=== PATIENT | male | born 1970 | race Caucasian/White ===

== ENCOUNTER → 2018-10-27 | Outpatient (CLI) | payer SELFPAY ==
--- NOTE | 2018-10-27 14:45 | CT_ITS ---
STUDY: CARDIAC CALCIUM SCORING - CT CHEST REASON FOR EXAM: Male, 47 years old. Hyperlipidemia. Screening. RADIATION DOSAGE (If Supplied By Facility): CTDIvol = ( 12.19 ) mGy, DLP = ( 219.42 ) mGycm TECHNIQUE: Axial non-enhanced images were acquired through the heart for the sole purpose of measuring coronary artery calcium. Individualized dose optimization techniques were used for this CT. COMPARISON: None. FINDINGS: Visualized surrounding anatomy: Normal. Left Main Coronary Artery: 23.8 Left Anterior Descending Artery: 0 Left Circumflex Artery: 0 Right Coronary Artery: 0 Total Calcium Score: 23.8 CT/CCTA Calcium Scoring IMPRESSION: A Calcium Score of 23.8 places the patient in the approximate 65th percentile, based on the LOREN[employer] data calculator. Please go to: [email or web address].[email or web address] , for a description of the calculator. Electronically Signed: Kingsley Barnard, at 16:01 EDT Tel , Service support ,
--- NOTE | 2018-10-27 14:46 | CT_ITS ---
STUDY: CARDIAC CALCIUM SCORING - CT CHEST REASON FOR EXAM: Male, 47 years old. Hyperlipidemia. Screening. RADIATION DOSAGE (If Supplied By Facility): CTDIvol = ( 12.19 ) mGy, DLP = ( 219.42 ) mGycm TECHNIQUE: Axial non-enhanced images were acquired through the heart for the sole purpose of measuring coronary artery calcium. Individualized dose optimization techniques were used for this CT. COMPARISON: None. FINDINGS: Visualized surrounding anatomy: Normal. Left Main Coronary Artery: 23.8 Left Anterior Descending Artery: 0 Left Circumflex Artery: 0 Right Coronary Artery: 0 Total Calcium Score: 23.8 CT/Limited Chest CT w/CCTA IMPRESSION: A Calcium Score of 23.8 places the patient in the approximate 65th percentile, based on the LORENZO data calculator. Please go to: [email or web address] , for a description of the calculator. Electronically Signed: Kingsley Barnard, at 16:01 EDT Tel , Service support ,
[2018-10-27 15:00] VITALS: BP 122/75; PULSE 61; RESP 16; O2SAT 99; BMI 29.1
--- NOTE | 2018-10-28 13:59 | CA.SCORE ---
Calcium Scoring Date of Study:: 10/28/18 Coronary Calcium Scoring: High-resolution Computed Tomographic imaging of the chest was performed on [10/27/2018 ], with particular attention paid to the coronary arteries. Images from the examination were analyzed for the presence and extent of coronary artery calcification , using coronary calcium quantification software. The patient tolerated the procedure well and there were no complications. The results of the coronary calcification analysis are provided below. - Findings Left Main (LM): 23.8 Left Anterior Descending (LAD): 0 Left Circumflex (LCX): 0 Right Coronary Artery (RCA): 0 Total Agatston Score: 23.8 Percentile Rankin - Conclusion Calcium Scoring Interpretation: Calcium Score Interpretation 0 No identifiable atherosclerotic plaque. Very low cardiovascular disease risk. <5% chance of presence coronary artery disease A Negative Examination 1-10 Minimal Plaque burden. Significant coronary artery disease very unlikely. 11-100 Mild plaque burden. Likely mild or minimal coronary atherosclerosis. 101-400 Moderate plaque burden Moderate non-obstructive coronary artery disease highly likely. Over 400 Extensive plaque burden. High likelihood of at least one significant coronary stenosis (>50% diameter) The total calcium score (23.8) is between the 50th and 75th percentile for men between the ages of 45 and 49. (Exact percentile calculated to be 65%; this means 64% of the population has a lower calcium score and 35% of the population is a higher calcium score than this patient.) A full evaluation of cardiac risk should include an assessment of all conventional risk factors, and the scores and percentile rankings reported herein should be evaluated in this context.
== END | disposition home or self-care (01) ==
LOC: CT 14:43
PROVIDERS: Family Provider Internal Medicine; PCP Internal Medicine; Referring Provider Internal Medicine; Visit Provider Internal Medicine
DX: E78.5 Hyperlipidemia, unspecified (principal)
CPT/HCPCS: 75571; 76380

== ENCOUNTER → 2019-03-06 | Outpatient (CLI) | payer BC, SELFPAY ==
[2018-10-27 15:00] VITALS: BMI 29.1
--- NOTE | 2019-03-06 11:00 | VDLE_ITS ---
Reason For Study: Pain/Swelling RIGHT LEFT CFV is compressible, spontaneous, phasic, CFV is compressible, spontaneous, phasic, competent and demonstrates normal competent, and demonstrates normal augmentation. augmentation. Rt FV Prox-Mid is compressible with normal venous flow. Acute deep vein thrombosis is noted in the right distal FV, PopV, T/P Trunk, Gastroc V, PTV, PeroV. Acute superficial vein thrombosis is noted in the right GSV from knee to ankle. GSV not visualized above knee. Thombus filled varicose veins noted throughout the calf. Procedure Exam performed in department. A preliminary report was called and/or faxed to Jayleen @ [employer] office. PT sent back to office. Interpretation Summary Acute deep vein thrombosis is noted in the distal right femoral vein. Acute deep vein thrombosis is noted in the right popliteal vein. Acute deep vein thrombosis is noted in the right tibio-peroneal trunk. Acute deep vein thrombosis is noted in the right posterior tibial vein. Acute deep vein thrombosis is noted in the right peroneal vein. Acute deep vein thrombosis is noted in the right gastrocnemius vein. The remainder of the right lower extremity deep venous system is patent and compressible. Acute superficial thrombophlebitis is noted in the right great saphenous vein from the right knee to the ankle, and throughout varicosities in the right calf. The right great saphenous vein was not visualized above the knee. Ordering Physician: Era Chakraborty Referring Physician: Era Chakraborty Performed By: Meri Rivera RVT
--- NOTE | 2019-03-06 13:34 | CT_ITS ---
STUDY: CTA CHEST REASON FOR EXAM: Male, 48 years old. Chest pain and DVT. RADIATION DOSAGE (If Supplied By Facility): CTDIvol = ( 9.05 ) mGy, DLP = ( 493.75 ) mGycm TECHNIQUE: The examination was performed with the intravenous administration of IV Isovue 300 100mL. Post-processing of the angiographic images was performed, with multiplanar reformation and 3D reconstruction. Individualized dose optimization techniques were used for this CT. COMPARISON: None. FINDINGS: There are multiple nonocclusive intraluminal filling defects in branches of the right and left upper lobe pulmonary arterial branches. A filling defect is seen in the right interlobar pulmonary artery in keeping with bilateral diffuse pulmonary emboli. Normal thoracic aorta and visualized great vessels. There is no demonstrated aortic dissection. Normal heart and pericardium. Normal mediastinum. Normal hilar regions. Normal visualized trachea and bronchi. The lungs are well expanded. Normal pulmonary parenchyma. Normal pleura. Normal chest wall structures. Normal osseous structures. Normal visualized upper abdomen. CT/CTA Chest W/WO Contrast IMPRESSION: Diffuse bilateral pulmonary emboli as described. The results were communicated to the referring physician. Electronically Signed: Phil Sharma, at 15:00 EDT , Service support ,
[2019-03-06 13:48] LABS: Erythrocyte Sedimentation Rate 3 mm/hr (0-20)
[2019-03-06 13:49] LABS: Absolute Lymphocyte Count 1.94 X10^3/uL (0.83-4.51); Absolute Neutrophil Count 5.3 X10^3/uL (2.0-7.7); Basophil# 0.05 X10^3/uL; Basophil% 0.6 % (0-1); Eosinophil# 0.24 X10^3/uL; Hematocrit 44.8 % (40-54); Hemoglobin 15.7 g/dL (13.0-16.5); Lymphocyte # 1.94 X10^3/ul (4.0); Lymphocyte % 24.1 % (19-41); Mean Corpuscular Hgb 32.4 pg (27.0-32.0); Mean Corpuscular Volume 92.6 fL (80-94); Mean Platelet Vol. 9.8 fl (6.2-12.0); Monocyte# 0.49 X10^3/uL; Monocyte% 6.1 % (0-10); NRBC Flagged by Analyzer 0 % (0-5); Neutrophil % 65.8 % (47-70); Partial Thromboplast Time 26.4 Seconds (24.1-36.2); Platelet Count 152 K/mm3 (150-450); Prothrombin Time (Protime)PT. 13.4 SECONDS (11.7-14.9); RBC Distribution Width CV 12.2 % (11.6-14.6); RBC Distribution Width SD 41.4 fl (35.1-43.9); Red Blood Count 4.84 M/mm3 (4.6-6.2); White Blood Count 8.1 K/mm3 (4.4-11.0)
[2019-03-06 14:04] LABS: ALB/GLOB Ratio 1.1 RATIO (0.9-2.4); AST(SGOT) 15 U/L (15-37); Alanine Aminotransfer ALT/SGPT 27 U/L (16-61); Alkaline Phosphatase 77 U/L (45-117); Anion Gap 6 (5-15); BUN 15 mg/dL (7-18); BUN/Creat Ratio 14.6 RATIO (10-20); Calcium,Total 9.3 mg/dL (8.5-10.1); Chloride 104 mmol/L (98-107); Creatinine, Serum 1.03 mg/dL (0.70-1.30); EST Glomerular Filtration Rate 81 mL/min (>60); Est Glom Filt Rate - Afr Amer 98 mL/min (>60); Globulin 3.5 g/dL (2.2-4.2); Glucose 99 mg/dL (74-106); Potassium 4.4 mmol/L (3.5-5.1); Protein, Total 7.5 g/dL (6.4-8.2); Sodium Level 138 mmol/L (136-145)
== END | disposition home or self-care (01) ==
PROVIDERS: Family Provider Internal Medicine; PCP Internal Medicine; Referring Provider Internal Medicine; Visit Provider Internal Medicine
DX: M79.661 Pain in right lower leg (principal); M79.89 Other specified soft tissue disorders; I82.409 Acute embolism and thrombosis of unspecified deep veins of unspecified lower extremity; R07.9 Chest pain, unspecified
CPT/HCPCS: 36415; 71275; 80053; 85025; 85610; 85652; 85730; 86140; 93971; Q9967

== ENCOUNTER 2019-05-01 08:53 | Day surgery (SDC) | payer BC, SELFPAY ==
[2019-04-13 15:52] VITALS: BMI 29.1
--- NOTE | 2019-04-22 11:43 | HP_ITS ---
Intake Vital Signs 04/13/19 Body Mass Index (BMI) 29.1 04/13/19 Height 6 ft 04/13/19 Weight: 225 lb 04/13/19 Body Mass Index (BMI) 30.5 04/13/19 Blood Pressure 113/78 04/13/19 Blood Pressure Location Rt brachial 04/13/19 Blood Pressure Position Sitting 04/13/19 Respiratory Rate 16 04/13/19 Pulse Rate 70 04/13/19 Pulse Source Monitor 04/13/19 Temperature 98.5 F 04/13/19 Temperature Source Oral 04/13/19 Pulse Ox 98 04/13/19 Oxygen Delivery Method room air Intake Visit Reasons: EGD/REFLUX [employer] Technician Required: No Is patient in pain?: No Allergies No Known Allergies Allergy (Verified 04/13/19 15:50) Medications apixaban 5 mg tablet 5 mg PO BID #60 tab 04/13/19 [History Confirmed 04/13/19] citalopram 20 mg tablet 20 mg PO DAILY #90 tab 04/13/19 [History Confirmed 04/13/19] omeprazole 40 mg capsule,delayed release 40 mg PO DAILY #90 cap 04/13/19 [History Confirmed 04/13/19] PFSH Medical History Hx of deep vein thrombophlebitis of lower extremity (Acute) Blood clot in vein (Acute) Hemorrhoids (Acute) Acid reflux (Acute) Blood in stool (Acute) Abdominal pain (Acute) SOB (shortness of breath) (Acute) Pulmonary embolism, bilateral (Acute) Surgical History History of esophagogastroduodenoscopy (EGD) (Acute) Hx of colonoscopy (Acute) hx of leg stent (Acute) Hx of nasal septoplasty (Acute) Family History Father A-fib Rossi esophagus Social History (Updated 04/22/19 @ 11:43 by Carlo Dacosta MD) Smoking Status: Never smoker second hand exposure: No alcohol intake: never substance use type: does not use caffeine: Yes what type of physical activity do you participate in: none frequency: does not exercise HPI HPI HPI: SHANNAN WILKES, is a 48 M who presents to the office today for HPI HPI Surgical H&P: Yes HPI: SHANNAN WILKES, is a 48 M who presents to the office today for Epigastric discomfort. Patient had an upper endoscopy completed on 05/06/2016 he was noted to have a small hiatal hernia and a fundic gland polyp and a negative Colonoscopy.Patient has had a recent DVT and PE and has a family history of GI cancer. ROS General General: No weight change, appetite, fatigue, colon cancer, breast cancer or weakness HEENT HEENT: No difficulty swallowing, eye injury, eye surgery, swollen glands or hoarseness Endo Endocrine: No thyroid disease, diabetes mellitus, thyroid cancer, Hair loss, heat intolerance or cold intolerance Skin Skin: No rash or changing moles Musc Musculoskeletal: No back problems, arthritis, rheumatoid arthritis, gout or joint pain Cardio Cardiovascular: No murmur, pacemaker, heart disease, atrial fibrillation, high blood pressure, heart attack, heart stent, palpitations, shortness of breat with exertion or chest pain Psych Psychiatric: No depression, anxiety or hearing voices Resp Respiratory: Yes shortness of breath, No sleep apnea, Yes cough, No COPD, No asthma, No emphysema, No wheezing Gastro Gastrointestinal: Yes abdominal pain, No nausea or vomiting, No diarrhea, No constipation, Yes blood in stool, Yes acid reflux, Yes hemorrhoids, No ulcers, No gallbladder problem, No black,tarry stools Stuart Hematologic: Yes blood thinners, No blood disorders, No bleeding, No anemia, Yes blood clots Neuro Neurologic: No system reviewed and no additional complaints, except as docu, No as per HPI, No abnormal walking, No abnormal hearing, No abnormal movements, No abnormal speech, No behavioral changes, No burning sensations, No confusion, No seizure-like activity, No unsteadiness, No dizziness, No localized weakness, No frequent falls, No headache(s), No lack of coordination, No loss of vision, No memory loss, No numbness, No other visual disturbances, No radiating pain, No restless legs, No sensory deficit, No fainting, No tingling, No tremor(s), No weakness, No other Exam Const General: no acute distress, well developed, well hydrated Orientation: oriented to person, oriented to place, oriented to time [facility] Head: normocephalic, atraumatic Ears: external ears normal Mouth: moist mucous membranes Eyes Sclera: sclerae normal Pupils: normal by confrontation Neck Neck: no lymphadenopathy noted Neck mass: No Thyroid: thyroid normal, symmetrical Chest Chest palpation & inspection: normal inspection of the chest Resp Effort & Inspection: normal respiratory effort Auscultation: clear to auscultation bilaterally Percussion: percussion normal Cardio Rate: regular rate Rhythm: regular rhythm Heart Sounds: no murmurs GI Palpation: soft, no hepatosplenomegaly, no masses, nontender Rectal Exam: other Other: Rectal exam deferred. Extrem General: normal to inspection, no clubbing, cyanosis or edema Assessment & Plan Problems 1. Gastroesophageal reflux disease, esophagitis presence not specified K21.9 2. Epigastric discomfort R10.13 Plan I have discussed the above with the patient. I have offered the patient esophagogastroduodenoscopy for evaluation. I have explained the risks/benefits of the procedure and described the procedure. I have discussed the risks with the patient, including but not limited to: infection, bleeding, perforation of the GI tract requiring emergency surgery, inability to complete the procedure, injury to any internal organs, complications of anesthesia, etc. - the patient understands and agrees to proceed. I have answered all the patient's questions to the patient's satisfaction and the patient has no further questions. The patient has been given instructions for the colon cleansing preparation. Coding Level of Care Code Off vis,est,level 3 Diagnoses Gastroesophageal reflux disease, esophagitis presence not specified K21.9 ??Esophagitis presence: esophagitis presence not specified Epigastric discomfort R10.13 04/22/19 1143 <Electronically signed by Carlo mcdaniels MD> Date _ Carlo Dacosta MD I have re-examined the patient. There are no clinical changes since date of exam.
[2019-05-01] VITALS (7 sets, daily range): BP systolic 103–130; BP diastolic 59–84; PULSE 62–71; RESP 16–18; TEMP 36.4–36.8; O2SAT 95–99; BMI 31.4
--- NOTE | 2019-05-01 | EGD_PTH ---
PATIENT: SHANNAN WILKES LOC: EN U#:[id number] AGE/SX: 48/M ROOM: RE05/01/[address]: Dr. Carlo Dacosta MD : 1970 BED: DIS: 05/01/2019 SPEC #: [id number] RECD: 05/01/19 13:46 STATUS: SOLITARIO RENeida #: [id number] KIKO: 05/01/19 00:[address]: Carlo Dacosta DEPT: SURGICAL PATHOLOGY RECD BY: Michael Hernandez ENTERED: 05/01/19 13:46 SP TYPE: EGD BIOPSY OT DR: Dr. Era Chakraborty DO Tissues: A - Small intestine biopsy B - Gastric mucous membrane Procedures: Surgery Specimen Level IV HEADER OPERATION: EGD ([facility] [place]) PRE-OP DIAGNOSIS: GERD, epigastric discomfort TISSUE SUBMITTED: A. Biopsy of small bowel, B. Antrum biopsy MICROSCOPIC DIAGNOSIS A. Small bowel, biopsy: Minimal nonspecific chronic inflammation. B. Gastric antrum, biopsy: Minimal chronic inflammation. AM:ana 05/02/19 COMMENT B. The results of immunohistochemistry for Helicobacter pylori will be reported separately ([id number]). MICROSCOPIC DESCRIPTION Slides are reviewed. GROSS DESCRIPTION A. Received is one container labeled with the patient name and designated biopsy of small bowel. The specimen consists of multiple irregular fragments of light cordoba soft tissue that in aggregate measure 0.5 x 0.2 x 0.1 cm. The specimen is totally submitted in one cassette. B. Received is one container labeled with the patient name and designated antrum biopsy. The specimen consists of one irregular fragment of light cordoba soft tissue that measures 0.3 x 0.3 x 0.1 cm. The specimen is totally submitted in one cassette. SHANTEL:ana 05/01/19 TC: 3 CPT: 73693 x2
--- NOTE | 2019-05-01 | IMM_PTH ---
PATIENT: SHANNAN WILKES LOC: EN U#:[id number] AGE/SX: 48/M ROOM: RE05/01/[address]: Dr. Carlo Dacosta MD : 1970 BED: DIS: 05/01/2019 SPEC #: [id number] RECD: 05/01/19 15:25 STATUS: SOLITARIO RENeida #: [id number] KIKO: 05/01/19 00:[address]: Carlo Dacosta DEPT: IMMUNOHISTOCHEMISTRY RECD BY: Darin Malagon ENTERED: 05/01/19 15:25 SP TYPE: IMMUNO OTHR DR: Dr. Era Chakraborty, DO Tissues: Gastric mucous membrane Procedures: H Pylori (initial) PHYSICIAN & INSTITUTION [place] [id number] SPECIMEN INFORMATION: Tissue Source: B. Antrum biopsy Clinical Info: GERD, epigastric pain Specimen Number: [id number] CPT code: 30573 METHODOLOGY: Deparaffinized sections of prefer/formalin-fixed tissue or PAP/DQ stained slides are incubated with monoclonal/polyclonal antibodies/oligonucleotide probes. Localization is made via biotin free immunoperoxidase method. Appropriate controls are performed and reacted as expected. Results on target cell population are indicated in the following table: RESULTS: ANTIBODY / CLONE RESULT Block B H Pylori (polyclonal) negative These tests were developed and their performance characteristics determined by [facility]. They may not have been cleared or approved by the U.S. Food and Drug Administration. The FDA has determined that such clearance or approval is not necessary. INTERPRETATION: B. Gastric antrum, biopsy: Negative for Helicobacter pylori organisms. AM:jose alfredo 05/02/19
[2019-05-01] MEDS: Lactated Ringers 1,000 ML 100 ML IV (09:18)
--- NOTE | 2019-05-01 09:47 | OP.EGD_ITS ---
Patient Name: Josue Quinn Procedure Date: 05/01/2019 9:23 AM Date of : 1970 Age: 48 Procedure: Upper GI endoscopy Indications: Epigastric abdominal pain, Gastro-esophageal reflux disease Providers: Carlo Dacosta MD Referring MD: Era Chakraborty Medicines: See the Anesthesia note for documentation of the administered medications Patient Profile: This is a 48 year old male. Refer to note in patient chart for documentation of history and physical. Complications: No immediate complications. Procedure: Pre-Anesthesia Assessment: - Prior to the procedure, a History and Physical was performed, and patient medications and allergies were reviewed. The patient's tolerance of previous anesthesia was also reviewed. The risks and benefits of the procedure and the sedation options and risks were discussed with the patient. All questions were answered, and informed consent was obtained. Prior Anticoagulants: The patient has taken no previous anticoagulant or antiplatelet agents. ASA Grade Assessment: II - A patient with mild systemic disease. After reviewing the risks and benefits, the patient was deemed in satisfactory condition to undergo the procedure. After obtaining informed consent, the endoscope was passed under direct vision. Throughout the procedure, the patient's blood pressure, pulse, and oxygen saturations were monitored continuously. The gastroscope was introduced through the mouth, and advanced to the second part of duodenum. The upper GI endoscopy was accomplished without difficulty. The patient tolerated the procedure well. Scope In: 9:36:58 AM Scope Out: 9:40:37 AM Total Procedure Duration Time 0 hours 3 minutes 39 seconds Findings: The Z-line was regular and was found 42 cm from the incisors. No biopsies or other specimens were collected for this exam. The examined esophagus was normal. Localized minimal inflammation characterized by erythema was found in the prepyloric region of the stomach. Biopsies were taken with a cold forceps for Helicobacter pylori testing. The examined duodenum was normal. Biopsies were taken with a cold forceps for histology. Impression: - Z-line regular, 42 cm from the incisors. No specimens collected. - Normal esophagus. - Gastritis. Biopsied. - Normal examined duodenum. Biopsied. Recommendation: - Await pathology results. - Repeat upper endoscopy (date not yet determined) for surveillance. - Return to physician merchandising assistant in 1 week. - Continue present medications. Procedure Code(s): --- Professional --- 26060, Esophagogastroduodenoscopy, flexible, transoral; with biopsy, single or multiple Diagnosis Code(s): --- Professional --- K29.70, Gastritis, unspecified, without bleeding R10.13, Epigastric pain K21.9, Gastro-esophageal reflux disease without esophagitis CPT copyright 2017 [employer]. All rights reserved. The codes documented in this report are preliminary and upon clinical office technician review may be revised to meet current compliance requirements. MD Carlo Chaparro MD 05/01/2019 9:46:57 AM This report has been signed electronically. Number of Addenda: 0 Note Initiated On: 05/01/2019 9:23 AM
== END 2019-05-01 10:24 | disposition home or self-care (01) ==
LOC: EN 08:54 → AC 08:55
PROVIDERS: Family Provider Internal Medicine; PCP Internal Medicine; Referring Provider Internal Medicine; Visit Provider Surgery
PROC: 0DJ08ZZ Inspection of Upper Intestinal Tract, Via Natural or Artificial Opening Endoscopic (ICD-10-PCS; CPT 43235; principal; 2019-05-01 09:40)
DX: K29.50 Unspecified chronic gastritis without bleeding (principal); K21.0 Gastro-esophageal reflux disease with esophagitis; Z86.718 Personal history of other venous thrombosis and embolism; Z86.711 Personal history of pulmonary embolism; Z80.0 Family history of malignant neoplasm of digestive organs; Z79.02 Long term (current) use of antithrombotics/antiplatelets
CPT/HCPCS: 43239; 88305; 88342; J7120; J2405

== ENCOUNTER → 2019-05-12 12:49 | Outpatient (CLI) | payer BC, SELFPAY ==
[2018-10-27 15:00] VITALS: BMI 29.1
[2019-05-01 09:14] VITALS: BMI 31.4
--- NOTE | 2019-05-12 12:56 | CT_ITS ---
STUDY: CT ABDOMEN AND PELVIS WITH CONTRAST REASON FOR EXAM: Male, 48 years old. Recent DVT , PE from trauma 01/2019, hx May-Thurner syndrome, left femoral stent 6 years ago. RADIATION DOSAGE (If Supplied By Facility): CTDIvol = ( 16.49 ) mGy, DLP = ( 1043.93 ) mGycm TECHNIQUE: Transaxial 3.75 mm images were obtained from the dome of the diaphragm to the symphysis pubis with oral contrast. 100mL Isovue-300 was administered. Sagittal and coronal images were reconstructed. Individualized dose optimization techniques were used for this CT. COMPARISON: CTA chest 03/06/2019 FINDINGS: The visualized lung bases are unremarkable. The visualized portions of the heart are within normal limits. Stable low attenuation in the right hepatic lobe 0.6 x 0.9 cm image 23 series 2. Normal gallbladder and extrahepatic biliary system. Normal spleen. Normal pancreas. Normal bilateral adrenal glands. Normal right kidney. Normal left kidney. Circumferential aortic left renal vein. The anterior aortic course enters the inferior vena cava L1-2 level and the posterior renal vein enters the inferior vena cava inferior L3 vertebral body level. Normal visualized stomach. Normal small intestine. Normal colon. The appendix is visualized and appears normal. Normal abdominal aorta. Minimal arteriosclerosis of the bilateral common iliac arteries. Normal inferior vena cava. No filling defect within the suprahepatic and intrahepatic inferior vena cava superior to the left anterior aortic renal renal vein confluence. More distal course is insufficiently enhanced for thrombus assessment. Normal retroperitoneum. Left common iliac vein stent. No heterogeneous lumen or overt filling defects detected. No compression STENT. Normal urinary bladder. Borderline size prostate. There is a small umbilical hernia containing fat. Normal osseous structures. CT/Abdomen/Pelvis WITH Contrast IMPRESSION: There is no acute abdomen and pelvic pathology. No inferior vena cava thrombosis proximal to the right renal vein confluence. 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 No compression or deformity of the left common iliac vein stent. Small right hepatic low-attenuation, too small to characterize, stable since previous CT 02/2019. This can be further assessed with needed with dynamic CT liver, ultrasound of liver or MRI depending on clinical concern. Other nonacute findings as outlined above. Electronically Signed: Yulissa Perez MD at 4:38 EST , Service support ,
== END ==
PROVIDERS: Family Provider Internal Medicine; PCP Internal Medicine; Referring Provider Internal Medicine; Visit Provider Internal Medicine
DX: R10.9 Unspecified abdominal pain (principal)
CPT/HCPCS: 74177; Q9967

== ENCOUNTER 2019-05-18 12:37 | Day surgery (SDC) | payer BC, SELFPAY ==
--- NOTE | 2019-04-22 11:43 | HP_ITS ---
Intake Vital Signs 04/13/19 Body Mass Index (BMI) 29.1 04/13/19 Height 6 ft 04/13/19 Weight: 225 lb 04/13/19 Body Mass Index (BMI) 30.5 04/13/19 Blood Pressure 113/78 04/13/19 Blood Pressure Location Rt brachial 04/13/19 Blood Pressure Position Sitting 04/13/19 Respiratory Rate 16 04/13/19 Pulse Rate 70 04/13/19 Pulse Source Monitor 04/13/19 Temperature 98.5 F 04/13/19 Temperature Source Oral 04/13/19 Pulse Ox 98 04/13/19 Oxygen Delivery Method room air Intake Visit Reasons: EGD/REFLUX [employer] Technician Required: No Is patient in pain?: No Allergies No Known Allergies Allergy (Verified 04/13/19 15:50) Medications apixaban 5 mg tablet 5 mg PO BID #60 tab 04/13/19 [History Confirmed 04/13/19] citalopram 20 mg tablet 20 mg PO DAILY #90 tab 04/13/19 [History Confirmed 04/13/19] omeprazole 40 mg capsule,delayed release 40 mg PO DAILY #90 cap 04/13/19 [History Confirmed 04/13/19] PFSH Medical History Hx of deep vein thrombophlebitis of lower extremity (Acute) Blood clot in vein (Acute) Hemorrhoids (Acute) Acid reflux (Acute) Blood in stool (Acute) Abdominal pain (Acute) SOB (shortness of breath) (Acute) Pulmonary embolism, bilateral (Acute) Surgical History History of esophagogastroduodenoscopy (EGD) (Acute) Hx of colonoscopy (Acute) hx of leg stent (Acute) Hx of nasal septoplasty (Acute) Family History Father A-fib Rossi esophagus Social History (Updated 04/22/19 @ 11:43 by Carlo Dacosta MD) Smoking Status: Never smoker second hand exposure: No alcohol intake: never substance use type: does not use caffeine: Yes what type of physical activity do you participate in: none frequency: does not exercise HPI HPI HPI: SHANNAN WILKES, is a 48 M who presents to the office today for HPI HPI Surgical H&P: Yes HPI: SHANNAN WILKES, is a 48 M who presents to the office today for Epigastric discomfort. Patient had an upper endoscopy completed on 05/06/2016 he was noted to have a small hiatal hernia and a fundic gland polyp and a negative Colonoscopy.Patient has had a recent DVT and PE and has a family history of GI cancer. ROS General General: No weight change, appetite, fatigue, colon cancer, breast cancer or weakness HEENT HEENT: No difficulty swallowing, eye injury, eye surgery, swollen glands or hoarseness Endo Endocrine: No thyroid disease, diabetes mellitus, thyroid cancer, Hair loss, heat intolerance or cold intolerance Skin Skin: No rash or changing moles Musc Musculoskeletal: No back problems, arthritis, rheumatoid arthritis, gout or joint pain Cardio Cardiovascular: No murmur, pacemaker, heart disease, atrial fibrillation, high blood pressure, heart attack, heart stent, palpitations, shortness of breat with exertion or chest pain Psych Psychiatric: No depression, anxiety or hearing voices Resp Respiratory: Yes shortness of breath, No sleep apnea, Yes cough, No COPD, No asthma, No emphysema, No wheezing Gastro Gastrointestinal: Yes abdominal pain, No nausea or vomiting, No diarrhea, No constipation, Yes blood in stool, Yes acid reflux, Yes hemorrhoids, No ulcers, No gallbladder problem, No black,tarry stools Stuart Hematologic: Yes blood thinners, No blood disorders, No bleeding, No anemia, Yes blood clots Neuro Neurologic: No system reviewed and no additional complaints, except as docu, No as per HPI, No abnormal walking, No abnormal hearing, No abnormal movements, No abnormal speech, No behavioral changes, No burning sensations, No confusion, No seizure-like activity, No unsteadiness, No dizziness, No localized weakness, No frequent falls, No headache(s), No lack of coordination, No loss of vision, No memory loss, No numbness, No other visual disturbances, No radiating pain, No restless legs, No sensory deficit, No fainting, No tingling, No tremor(s), No weakness, No other Exam Const General: no acute distress, well developed, well hydrated Orientation: oriented to person, oriented to place, oriented to time [facility] Head: normocephalic, atraumatic Ears: external ears normal Mouth: moist mucous membranes Eyes Sclera: sclerae normal Pupils: normal by confrontation Neck Neck: no lymphadenopathy noted Neck mass: No Thyroid: thyroid normal, symmetrical Chest Chest palpation & inspection: normal inspection of the chest Resp Effort & Inspection: normal respiratory effort Auscultation: clear to auscultation bilaterally Percussion: percussion normal Cardio Rate: regular rate Rhythm: regular rhythm Heart Sounds: no murmurs GI Palpation: soft, no hepatosplenomegaly, no masses, nontender Rectal Exam: other Other: Rectal exam deferred. Extrem General: normal to inspection, no clubbing, cyanosis or edema Assessment & Plan Problems 1. Gastroesophageal reflux disease, esophagitis presence not specified K21.9 2. Epigastric discomfort R10.13 Plan I have discussed the above with the patient. I have offered the patient esophagogastroduodenoscopy for evaluation. I have explained the risks/benefits of the procedure and described the procedure. I have discussed the risks with the patient, including but not limited to: infection, bleeding, perforation of the GI tract requiring emergency surgery, inability to complete the procedure, injury to any internal organs, complications of anesthesia, etc. - the patient understands and agrees to proceed. I have answered all the patient's questions to the patient's satisfaction and the patient has no further questions. The patient has been given instructions for the colon cleansing preparation. Coding Level of Care Code Off vis,est,level 3 Diagnoses Gastroesophageal reflux disease, esophagitis presence not specified K21.9 ??Esophagitis presence: esophagitis presence not specified Epigastric discomfort R10.13 04/22/19 1143 <Electronically signed by Carlo mcdaniels MD> Date _ Carlo Dacosta MD
[2019-05-15 10:29] VITALS: BMI 31.4
[2019-05-18 13:14] VITALS: BP 136/83; PULSE 70; RESP 16; TEMP 36.4; O2SAT 98
== END 2019-05-18 13:44 | disposition home or self-care (01) ==
LOC: EN 12:38
PROVIDERS: Surgery; Family Provider Internal Medicine; PCP Internal Medicine; Referring Provider Surgery; Visit Provider Surgery
PROC: F00ZJWZ Instrumental Swallowing and Oral Function Assessment using Swallowing Equipment (ICD-10-PCS; CPT 43235; principal; 2019-05-18 13:25)
DX: K21.9 Gastro-esophageal reflux disease without esophagitis (principal); Z86.711 Personal history of pulmonary embolism; Z79.899 Other long term (current) drug therapy; R10.13 Epigastric pain
CPT/HCPCS: 91010; 91013

== ENCOUNTER → 2019-05-23 12:51 | Outpatient (CLI) | payer BC, SELFPAY ==
[2019-05-15 10:29] VITALS: BMI 31.4
--- NOTE | 2019-05-23 13:45 | MRI_ITS ---
STUDY: MRI ABDOMEN WITH AND WITHOUT CONTRAST REASON FOR EXAM: Male, 48 years old. Low attenuation RIGHT hepatic lobe TECHNIQUE: Standardized fat and water weighted pulse sequences were obtained in all 3 orthogonal planes post contrast administration. IV Yes YES was administered for the contrast portion of the examination. COMPARISON: CT 05/12/2019 FINDINGS: The visualized lung bases are unremarkable. The visualized portions of the heart are within normal limits. Subcentimeter hyperintensity of the posterior segment right lobe of the liver demonstrates no contrast enhancement consistent with a small hepatic cyst. Normal gallbladder and extrahepatic biliary system. Normal spleen. Normal pancreas. Normal bilateral adrenal glands. Normal right kidney. Normal left kidney. Normal visualized stomach. Normal small intestine. Normal colon. There is non-visualization of the appendix. Normal abdominal aorta. Normal inferior vena cava. Normal retroperitoneum. Normal abdominal wall. Normal osseous structures. MRI/MRI Abd WITH and W/O Contrast IMPRESSION: MRI confirms a small subcentimeter cyst in the posterior segment the right lobe of the liver. Electronically Signed: Fazal Johnson MD at 16:40 EST Tel , Service support ,
== END ==
PROVIDERS: Family Provider Internal Medicine; PCP Internal Medicine; Referring Provider Internal Medicine; Visit Provider Internal Medicine
DX: R93.5 Abnormal findings on diagnostic imaging of other abdominal regions, including retroperitoneum (principal)
CPT/HCPCS: 74183; A9575

== ENCOUNTER 2019-07-10 06:33 | Day surgery (SDC) | payer BC, SELFPAY ==
--- NOTE | 2019-06-27 02:42 | HP_ITS ---
Intake Vital Signs 06/27/19 Height 6 ft 06/27/19 Weight: 222 lb 06/27/19 BP 121/68 H 06/27/19 Blood Pressure Location Rt brachial 06/27/19 Position Sitting 06/27/19 Respiration 16 06/27/19 Pulse 88 06/27/19 Pulse Source Monitor 06/27/19 Temp 97.5 F L 06/27/19 Temp Source Oral 06/27/19 Pulse Oximetry (%) 97 06/27/19 Oxygen Delivery Method room air 06/27/19 BMI 31.4 Intake Visit Reasons: Update H&P PH Probe on 07/10 DP Hand Bootmaker Required: No Is patient in pain?: No Allergies No Known Allergies Allergy (Verified 06/27/19 09:51) Medications apixaban 5 mg tablet 5 mg PO BID #60 tab 04/13/19 [History Confirmed 06/27/19] citalopram 20 mg tablet 20 mg PO DAILY #90 tab 04/13/19 [History Confirmed 06/27/19] omeprazole 40 mg capsule,delayed release 40 mg PO DAILY #90 cap 04/13/19 [History Confirmed 06/27/19] PFSH Medical History Hx of deep vein thrombophlebitis of lower extremity (Acute) Blood clot in vein (Acute) Hemorrhoids (Acute) Acid reflux (Acute) Blood in stool (Acute) Abdominal pain (Acute) SOB (shortness of breath) (Acute) Pulmonary embolism, bilateral (Acute) Surgical History History of esophagogastroduodenoscopy (EGD) (Acute) Hx of colonoscopy (Acute) hx of leg stent (Acute) Hx of nasal septoplasty (Acute) History of esophagogastroduodenoscopy (EGD) (Acute ~04/2019) Family History Father A-fib Rossi esophagus Social History (Updated 06/27/19 @ 14:51 by Genesis Herrera PA-C) second hand exposure: No alcohol intake: never substance use type: does not use caffeine: Yes what type of physical activity do you participate in: none frequency: does not exercise HPI HPI HPI: SHANNANHAKEEM WILKES, is a 48 M who presents to the office today for HPI HPI Surgical H&P: Yes HPI: SHANNAN WILKES, is a 48 M who presents to the office today for reflux. Dr. Dacosta performed an upper scope which demonstrated chronic gastritis and duodenitis on 05/01/19. Patient tolerated the procedure well. Patient notes he has been on omeprazole 40 mg daily for approximately 10 years. He notes his symptoms are controlled however if he skips a dose then he has GERD. Patient is on Eliquis due to blood clots in his legs and lungs. On 05/18/20, patient had completed manometry testing. Results showed swallowing pressures were normal. Patient denies recent hospitalizations or illnesses since last evaluated in the office. ROS General General: No weight change, appetite, fatigue, colon cancer, breast cancer or weakness HEENT HEENT: No difficulty swallowing, eye injury, eye surgery, swollen glands or hoarseness Endo Endocrine: No thyroid disease, diabetes mellitus, thyroid cancer, Hair loss, heat intolerance or cold intolerance Skin Skin: No rash or changing moles Musc Musculoskeletal: No back problems, arthritis, rheumatoid arthritis, gout or joint pain Cardio Cardiovascular: No murmur, pacemaker, heart disease, atrial fibrillation, high blood pressure, heart attack, heart stent, palpitations, shortness of breat with exertion or chest pain Psych Psychiatric: No depression, anxiety or hearing voices Resp Respiratory: Yes shortness of breath, No sleep apnea, Yes cough, No COPD, No asthma, No emphysema, No wheezing Gastro Gastrointestinal: Yes abdominal pain, No nausea or vomiting, No diarrhea, No constipation, Yes blood in stool, Yes acid reflux, Yes hemorrhoids, No ulcers, No gallbladder problem, No black,tarry stools Stuart Hematologic: Yes blood thinners, No blood disorders, No bleeding, No anemia, Yes blood clots Neuro Neurologic: No weakness Exam Const General: cooperative, healthy appearing, comfortable, no acute distress HENNM Head: normal to inspection Eyes General: appearance normal, both eyes and all related structures Neck Neck: normal visual inspection Neck mass: No Resp Effort & Inspection: normal respiratory effort Auscultation: clear to auscultation bilaterally Cardio Rate: regular rate Rhythm: regular rhythm Heart Sounds: no murmurs GI Inspection: normal to inspection Palpation: soft Auscultation: normal bowel sounds Skin General: no rashes or lesions noted Neuro General: no focal motor deficits, CN's II-XI intact bilaterally Extrem General: normal to inspection Psych Appearance: grossly normal Affect: normal affect Assessment & Plan Problems 1. Gastroesophageal reflux disease, esophagitis presence not specified K21.[address] Dacosta will plan to perform an upper scope with pH probe placement. Procedure details, risks and benefits have been explained to the patient. Patient will need to hold omeprazole for 7 days prior to the procedure. Patient will also need to hold Eliquis 3 days prior to the procedure. Patient and his have had the opportunity to ask and have questions answered. Orders Orders: EGD with 48 pH probe Today Coding Level of Care Code No Charge Diagnoses Gastroesophageal reflux disease, esophagitis presence not specified K21.9 ??Esophagitis presence: esophagitis presence not specified Comment Update H&P 06/27/19 3105 <Electronically signed by Genesis patel PA-C> Date _ Genesis Herrera PA-C
[2019-06-27 09:50] VITALS: BMI 30.1
[2019-07-10] VITALS (7 sets, daily range): BP systolic 107–122; BP diastolic 69–77; PULSE 51–62; RESP 16; TEMP 36.2–36.6; O2SAT 97–100; BMI 30.6
[2019-07-10] MEDS: Lactated Ringers 1,000 ML 100 ML IV (07:12)
--- NOTE | 2019-07-10 07:23 | PCM.HP.BLA ---
History and Physical Date of Admission: 07/10/19 [facility] Medical Records Department [address] [place] [address] History and Physical 06/27/19 0242 MR#: [id number] Acct: [id number] Name: SHANNAN WILKES Rep #: [id number] : 1970 48 From: Genesis Herrera PA-C PCP: Era Chakraborty DO Status: PRE SDC Location: EN Intake Vital Signs 06/27/19 Height 6 ft 06/27/19 Weight: 222 lb 06/27/19 BP 121/68 H 06/27/19 Blood Pressure Location Rt brachial 06/27/19 Position Sitting 06/27/19 Respiration 16 06/27/19 Pulse 88 06/27/19 Pulse Source Monitor 06/27/19 Temp 97.5 F L 06/27/19 Temp Source Oral 06/27/19 Pulse Oximetry (%) 97 06/27/19 Oxygen Delivery Method room air 06/27/19 BMI 31.4 Intake Visit Reasons: Update H&P PH Probe on 07/10 DP Carbon Paper Interleafer Required: No Is patient in pain?: No Allergies No Known Allergies Allergy (Verified 06/27/19 09:51) Medications apixaban 5 mg tablet 5 mg PO BID #60 tab 04/13/19 [History Confirmed 06/27/19] citalopram 20 mg tablet 20 mg PO DAILY #90 tab 04/13/19 [History Confirmed 06/27/19] omeprazole 40 mg capsule,delayed release 40 mg PO DAILY #90 cap 04/13/19 [History Confirmed 06/27/19] PFSH Medical History Hx of deep vein thrombophlebitis of lower extremity (Acute) Blood clot in vein (Acute) Hemorrhoids (Acute) Acid reflux (Acute) Blood in stool (Acute) Abdominal pain (Acute) SOB (shortness of breath) (Acute) Pulmonary embolism, bilateral (Acute) Surgical History History of esophagogastroduodenoscopy (EGD) (Acute) Hx of colonoscopy (Acute) hx of leg stent (Acute) Hx of nasal septoplasty (Acute) History of esophagogastroduodenoscopy (EGD) (Acute ~04/2019) Family History Father A-fib Rossi esophagus Social History (Updated 06/27/19 @ 14:51 by Genesis Herrera PA-C) second hand exposure: No alcohol intake: never substance use type: does not use caffeine: Yes what type of physical activity do you participate in: none frequency: does not exercise HPI HPI HPI: SHANNAN WILKES, is a 48 M who presents to the office today for HPI HPI Surgical H&P: Yes HPI: SHANNAN WILKES, is a 48 M who presents to the office today for reflux. Dr. Dacosta performed an upper scope which demonstrated chronic gastritis and duodenitis on 05/01/19. Patient tolerated the procedure well. Patient notes he has been on omeprazole 40 mg daily for approximately 10 years. He notes his symptoms are controlled however if he skips a dose then he has GERD. Patient is on Eliquis due to blood clots in his legs and lungs. On 05/18/20, patient had completed manometry testing. Results showed swallowing pressures were normal. Patient denies recent hospitalizations or illnesses since last evaluated in the office. ROS General General: No weight change, appetite, fatigue, colon cancer, breast cancer or weakness HEENT HEENT: No difficulty swallowing, eye injury, eye surgery, swollen glands or hoarseness Endo Endocrine: No thyroid disease, diabetes mellitus, thyroid cancer, Hair loss, heat intolerance or cold intolerance Skin Skin: No rash or changing moles Musc Musculoskeletal: No back problems, arthritis, rheumatoid arthritis, gout or joint pain Cardio Cardiovascular: No murmur, pacemaker, heart disease, atrial fibrillation, high blood pressure, heart attack, heart stent, palpitations, shortness of breat with exertion or chest pain Psych Psychiatric: No depression, anxiety or hearing voices Resp Respiratory: Yes shortness of breath, No sleep apnea, Yes cough, No COPD, No asthma, No emphysema, No wheezing Gastro Gastrointestinal: Yes abdominal pain, No nausea or vomiting, No diarrhea, No constipation, Yes blood in stool, Yes acid reflux, Yes hemorrhoids, No ulcers, No gallbladder problem, No black,tarry stools Stuart Hematologic: Yes blood thinners, No blood disorders, No bleeding, No anemia, Yes blood clots Neuro Neurologic: No weakness Exam Const General: cooperative, healthy appearing, comfortable, no acute distress HENMT Head: normal to inspection Eyes General: appearance normal, both eyes and all related structures Neck Neck: normal visual inspection Neck mass: No Resp Effort & Inspection: normal respiratory effort Auscultation: clear to auscultation bilaterally Cardio Rate: regular rate Rhythm: regular rhythm Heart Sounds: no murmurs GI Inspection: normal to inspection Palpation: soft Auscultation: normal bowel sounds Skin General: no rashes or lesions noted Neuro General: no focal motor deficits, CN's II-XI intact bilaterally Extrem General: normal to inspection Psych Appearance: grossly normal Affect: normal affect Assessment & Plan Problems 1. Gastroesophageal reflux disease, esophagitis presence not specified K21.[address] Dacosta will plan to perform an upper scope with pH probe placement. Procedure details, risks and benefits have been explained to the patient. Patient will need to hold omeprazole for 7 days prior to the procedure. Patient will also need to hold Eliquis 3 days prior to the procedure. Patient and his have had the opportunity to ask and have questions answered. Orders Orders: EGD with 48 pH probe Today Coding Level of Care Code No Charge Diagnoses Gastroesophageal reflux disease, esophagitis presence not specified K21.9 ??Esophagitis presence: esophagitis presence not specified Comment Update H&P 06/27/19 1451 <Electronically signed by Genesis Herrera PA-C> Date Genesis Herrera PA-C 06/28/19 1235 <Electronically signed by Genesis Herrera PA-C> Date: Time: Genesis Herrera PA-C CC: Genesis Herrera PA-C; Era FLAHERTY Date Dictated: 06/27/19 0242 Date Transcribed: 06/27/19 5004 [employer]: [id number] Signed I have re-examined the patient. There are no clinical changes since date of exam.
--- NOTE | 2019-07-10 07:55 | OP.CCLET_ITS ---
07/10/2019 Era Chakraborty Re : Upper GI endoscopy procedure for Josue Chakraborty This procedure was performed on Wednesday, July 10, 2019. My impressions and recommendations are as follows: Impressions : - Z-line regular, 38 cm from the incisors. - Normal stomach. No specimens collected. - Normal examined duodenum. No specimens collected. - An esophageal pH probe catheter was placed. - No specimens collected. Recommendations : - Discharge patient to home. - Resume previous diet. - Continue present medications. - Return to my office in 1 week. My findings are described in the full procedure note, which is enclosed. If I can be of further assistance, please feel free to contact me at Doctor phone number(s): , Fax: [phone], Work: . Sincerely, MD Carlo Chaparro MD 07/10/2019 7:55:06 AM This report has been signed electronically.
--- NOTE | 2019-07-10 07:55 | OP.EGD_ITS ---
Patient Name: Josue Quinn Procedure Date: 07/10/2019 7:28 AM Date of : 1970 Age: 48 Procedure: Upper GI endoscopy Indications: Gastro-esophageal reflux disease Providers: Carlo Dacosta MD Referring MD: Era Chakraborty Medicines: See the Anesthesia note for documentation of the administered medications Patient Profile: This is a 48 year old male. Refer to note in patient chart for documentation of history and physical. Complications: No immediate complications. Procedure: Pre-Anesthesia Assessment: - Prior to the procedure, a History and Physical was performed, and patient medications and allergies were reviewed. The patient's tolerance of previous anesthesia was also reviewed. The risks and benefits of the procedure and the sedation options and risks were discussed with the patient. All questions were answered, and informed consent was obtained. Prior Anticoagulants: The patient has taken Eliquis (apixaban), last dose was 7 days prior to procedure. ASA Grade Assessment: III - A patient with severe systemic disease. After reviewing the risks and benefits, the patient was deemed in satisfactory condition to undergo the procedure. After obtaining informed consent, the endoscope was passed under direct vision. Throughout the procedure, the patient's blood pressure, pulse, and oxygen saturations were monitored continuously. The gastroscope was introduced through the mouth, and advanced to the second part of duodenum. The upper GI endoscopy was accomplished without difficulty. The patient tolerated the procedure well. Scope In: 7:39:48 AM Scope Out: 7:44:00 AM Total Procedure Duration Time 0 hours 4 minutes 12 seconds Findings: The Z-line was regular and was found 38 cm from the incisors. The entire examined stomach was normal. No biopsies or other specimens were collected for this exam. The examined duodenum was normal. No biopsies or other specimens were collected for this exam. An esophageal pH probe catheter was placed at 32 cm from the nares. No biopsies or other specimens were collected for this exam. Impression: - Z-line regular, 38 cm from the incisors. - Normal stomach. No specimens collected. - Normal examined duodenum. No specimens collected. - An esophageal pH probe catheter was placed. - No specimens collected. Recommendation: - Discharge patient to home. - Resume previous diet. - Continue present medications. - Return to my office in 1 week. Procedure Code(s): --- Professional --- 50447, Esophagogastroduodenoscopy, flexible, transoral; diagnostic, including collection of specimen(s) by brushing or washing, when performed (separate procedure) 09157, Esophagus, gastroesophageal reflux test; with nasal catheter pH electrode(s) placement, recording, analysis and interpretation Diagnosis Code(s): --- Professional --- K21.9, Gastro-esophageal reflux disease without esophagitis CPT copyright 2017 [employer]. All rights reserved. The codes documented in this report are preliminary and upon continuous improvement black belt review may be revised to meet current compliance requirements. MD Carlo Chaparro MD 07/10/2019 7:55:06 AM This report has been signed electronically. Number of Addenda: 0 Note Initiated On: 07/10/2019 7:28 AM
== END 2019-07-10 08:38 | disposition home or self-care (01) ==
LOC: EN 06:33 → AC 06:35
PROVIDERS: PCP Internal Medicine; Referring Provider Internal Medicine; Visit Provider Surgery
PROC: (CPT 43235; principal; 2019-07-10 07:25)
DX: K21.9 Gastro-esophageal reflux disease without esophagitis (principal); Z86.711 Personal history of pulmonary embolism; Z86.718 Personal history of other venous thrombosis and embolism; Z79.02 Long term (current) use of antithrombotics/antiplatelets; Z79.899 Other long term (current) drug therapy
CPT/HCPCS: 43235; 91035; J7120; J2405

== ENCOUNTER → 2019-11-29 | Outpatient (CLI) | payer BC, SELFPAY ==
[2019-08-01 08:41] VITALS: BMI 30.6
== END | disposition home or self-care (01) ==
LOC: LABSPEC 10:26
PROVIDERS: PCP Internal Medicine; Referring Provider Dermatology; Visit Provider Dermatology
DX: B35.1 Tinea unguium (principal)
CPT/HCPCS: 87077; 87101

== ENCOUNTER → 2021-02-27 08:43 | Outpatient (CLI) | payer OTHER, SELFPAY ==
--- NOTE | 2021-02-27 08:49 | RAD_ITS ---
INDICATION: DYSPHAGIA EXAMINATION/TECHNIQUE: Barium pill was administered to the patient. Thick and thin oral contrast and effervescent granules were administered to the patient. Total Fluoroscopic Time: 1 minute 22 seconds number of Fluoroscopic Images: 19 Radiation dosage index: 105.95 mGy COMPARISON: None. FINDINGS: Unremarkable swallowing of the barium pill. Unremarkable oropharyngeal phase of swallowing, no evidence of laryngeal penetration or aspiration was seen. 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 Unremarkable esophageal motility is seen. No evidence of gastroesophageal reflux is visualized. 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 Small type I hiatus hernia. No evidence of gastroesophageal reflux was seen. Electronically Signed: Hernan Win MD at 9:40 EDT Tel , Service support ,
== END ==
PROVIDERS: PCP Internal Medicine; Referring Provider Internal Medicine Gastroenterology; Visit Provider Internal Medicine Gastroenterology
DX: R13.10 Dysphagia, unspecified (principal)
CPT/HCPCS: 74220

== ENCOUNTER → 2021-05-08 09:12 | Outpatient (CLI) | payer BC, OTHER, SELFPAY | PROVIDERS: PCP Internal Medicine; Visit Provider Physician Assistant | DX: Z11.52 Encounter for screening for COVID-19 (principal) | CPT/HCPCS: 87635; U0005; U0003 ==

== ENCOUNTER → 2023-01-13 | Outpatient (CLI) | payer OTHER, SELFPAY ==
--- NOTE | 2023-01-13 16:54 | CT_ITS ---
INDICATION: LYMPHADENOPATHY EXAMINATION: CT Chest W/ Contrast Injection TECHNIQUE: Helically acquired images were obtained of the chest following administration of IV contrast. A radiation dose optimization technique was used for this scan. 3D postprocessing images including MIPS were reviewed. IV Contrast dosage and agent: IV 100mL Isovue-300 COMPARISON: None. FINDINGS: Lungs: Unremarkable Mediastinum: The cardiomediastinal silhouette is not enlarged. No mediastinal, hilar or axillary adenopathy. Mild aortic arch and coronary artery calcifications. No obvious filling defect seen within the visualized pulmonary arteries. Pleura: Unremarkable Bones/Soft tissues: Mild scattered degenerative changes of the visualized spine. Upper abdomen: No visualized abnormalities in the upper abdomen. CT/Chest WITH Contrast IMPRESSION: No acute abnormalities in the chest. Electronically Signed: Odell Cornejo MD at 23:49 EDT ,
== END | disposition home or self-care (01) ==
PROVIDERS: PCP Internal Medicine; Referring Provider Internal Medicine; Visit Provider Internal Medicine
DX: R59.1 Generalized enlarged lymph nodes (principal)
CPT/HCPCS: 71260; Q9967

== ENCOUNTER → 2023-11-01 | Outpatient (CLI) | payer OTHER, SELFPAY ==
--- NOTE | 2023-11-01 07:34 | US_ITS ---
STUDY: ABDOMINAL ULTRASOUND - RIGHT UPPER QUADRANT REASON FOR VISIT: Male, 52 years old abd. Bloating, gallbladder -- abd. Bloating, gallbladder TECHNIQUE: Ultrasound evaluation of the right upper quadrant was performed with real-time and static parker-scale imaging. TECHNICAL QUALITY: Adequate. COMPARISON: None. FINDINGS: Liver: The liver measures 15.7 cm. There is normal echogenicity of the liver. The bile ducts are within normal limits. There is hepatic color flow. The direction of portal flow is hepatopetal. There is no demonstrated mass lesion. Gallbladder: Normal distended gallbladder. The gallbladder wall measures 3.0 mm. There is a negative sonographic Logan''s sign. There is no pericholecystic fluid. There are no gallstones. Common Bile Duct (C.B.D.): The common bile duct measures 4 mm. Pancreas: Normal size of the head, body and tail of the pancreas. There is normal echogenicity of the pancreas. There is no demonstrated pancreatic mass or cyst. Right Kidney: Normal size of the right kidney. The right kidney measures 11.3 cm x 6.3 cm x 6.9 cm. Normal renal cortex. The right cortex measures 1.5 cm. There is no demonstrated renal mass or cyst. There is no right hydronephrosis. US/Abdomen Limited IMPRESSION: Normal right upper quadrant ultrasound examination. Electronically Signed: Phil Sharma MD at 10:44 EDT ,
== END | disposition home or self-care (01) ==
LOC: US 07:32
PROVIDERS: PCP Internal Medicine; Referring Provider Internal Medicine; Visit Provider Internal Medicine
DX: R14.0 Abdominal distension (gaseous) (principal)
CPT/HCPCS: 76705

== ENCOUNTER → 2023-11-22 | Outpatient (CLI) | payer OTHER, SELFPAY ==
--- NOTE | 2023-11-22 10:14 | NM_ITS ---
CLINICAL: 53-year-old male with history of abdominal pain and bloating. RADIONUCLIDE HEPATOBILIARY SCINTIGRAPHY COMPARISON: Abdominal ultrasound report 11/01/2023 FINDINGS: Following the intravenous administration of 4.9 mCi of 99m Tc Mebrofenin, hepatobiliary images reveal: 1. Relatively prompt and homogeneous radiopharmaceutical concentration is noted by a normal sized liver. No parenchymal defects are identified. 2. Gallbladder activity is identified at approximately 9 minutes post radiopharmaceutical administration. 3. Small intestinal tract is observed at 31 minutes following tracer injection. 4. Washout of the radiopharmaceutical by the hepatic parenchyma appears qualitatively normal. NM/Hepatobilliary Imaging IMPRESSION: 1. NORMAL 99m Tc Mebrofenin hepatobiliary imaging examination. A. Visualization of the gallbladder within 60 minutes post radiopharmaceutical administration excludes acute cholecystitis with 97% certitude. (Cristofer et al, Nucl Med Angela [employer] pg. 35, 1980). B. Further evaluation of this individual may be undertaken utilizing CCK augmented hepatobiliary scintigraphy if clinically appropriate and indicated. (Tima Cisneros al, J Nucl Med 32: 1695, 1990). Electronically Signed: Fazal Stewart DO at 9:46 EDT ,
== END | disposition home or self-care (01) ==
PROVIDERS: PCP Internal Medicine; Referring Provider Internal Medicine; Visit Provider Internal Medicine
DX: R14.0 Abdominal distension (gaseous) (principal); R10.9 Unspecified abdominal pain
CPT/HCPCS: 78226; A9537

== ENCOUNTER → 2024-10-14 | Outpatient (CLI) | payer OTHER, SELFPAY ==
--- NOTE | 2024-10-14 08:55 | MRI_ITS ---
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 Multiplanar and multisequence images were obtained without IV contrast administration. COMPARISON: COMPARISON : None FINDINGS: Bone Marrow: There is a 0.76 x 1.22 x 0.72 cm circumscribed low T1, mixed to high T2 signal expansile lesion in the distal 1/3 of the 3rd proximal phalanx with no definite cortical breakthrough, or soft tissue component. The flexor and extensor tendons appear intact. There is no visible muscular atrophy. The Lisfranc articulation is intact. MRI/Lower Ext/No Jt/w/o IMPRESSION: There is a 0.76 x 1.22 x 0.72 cm circumscribed low T1, mixed to high T2 signal expansile lesion in the distal 1/3 of the 3rd proximal phalanx with no definite cortical breakthrough, or soft tissue compone nt. Postcontrast T1 fat-sat images are recommended for further characterization. Reading Location: [facility]
== END | disposition home or self-care (01) ==
PROVIDERS: PCP Internal Medicine; Referring Provider Podiatrist; Visit Provider Podiatrist
DX: D16.21 Benign neoplasm of long bones of right lower limb (principal)
CPT/HCPCS: 73718

== ENCOUNTER → 2024-10-26 | Outpatient (CLI) | payer OTHER, SELFPAY ==
--- NOTE | 2024-10-26 06:44 | MRI_ITS ---
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 Multiplanar and multisequence images were obtained. CONTRAST: Clariscan VOLUME: 20mL COMPARISON: None available (only report available) FINDINGS: See impression MRI/Lower Ext/No Jt/W/Contrast IMPRESSION: Enhancing expansile intramedullary lesion along the distal aspect of the 3rd pr oximal phalanx with associated endosteal scalloping measuring approximately 14 x 8 x 7 mm (AP, TV and CC dimensions). A ssociated cortical step-off seen on the sagittal images which could relate to pathologic fracture. No obvious cortical breakthr ough. Benign (such as enchondroma) and malignant lesions are both considered. Recommend further evaluation with radiographs and CT to assess for fracture and bony matrix. Reading Location: [facility]
== END | disposition home or self-care (01) ==
PROVIDERS: PCP Internal Medicine; Referring Provider Podiatrist; Visit Provider Podiatrist
DX: D16.21 Benign neoplasm of long bones of right lower limb (principal)
CPT/HCPCS: 73719; A9575